=== PATIENT | male | born 1955 | race Two or more races ===

== ENCOUNTER 2020-09-20 09:06 | Day surgery (SDC) | payer OTHER ==
[2020-09-15 15:04] VITALS: BMI 28.8
[2020-09-20] MEDS: PHENYLEPHRINE 2.5% OPHTH SOLN 15 ML BOTTLE ONE ×3 (09:45→09:55)
[2020-09-20] MEDS: CIPROFLOXACIN 0.3% EYE DROPS 5 ML BOTTLE ONE ×3 (09:45→09:55)
[2020-09-20] MEDS: TROPICAMIDE 1% OPHTH SOLN 15 ML BOTTLE ONE ×3 (09:45→09:55)
[2020-09-20] MEDS: CYCLOPENTOLATE 2% OPHTH SOLN 2 ML BOTTLE ONE ×3 (09:45→09:55)
[2020-09-20] MEDS ORDERED: MIDAZOLAM HCL 2 MG/2 ML SINGLE DOSE VIAL ONE (12:02)
[2020-09-20 12:52] VITALS: TEMP 98
[2020-09-20 14:09] VITALS: BP 133/63; PULSE 55
== END 2020-09-20 13:00 | disposition home or self-care (01) ==
LOC: FASU 09:06
PROVIDERS: ATTEND Ophthalmology
PROC: 08RK3JZ Replacement of Left Lens with Synthetic Substitute, Percutaneous Approach (ICD-10-PCS; principal; 2020-09-20 12:08)
DX: H26.9 Unspecified cataract (principal)
CPT/HCPCS: 82962

== ENCOUNTER 2024-07-02 19:47 | Emergency (ER) | payer OTHER ==
[2024-07-02 20:19] VITALS: BP 148/80; PULSE 72; TEMP 98.4; BMI 29.6
[2024-07-02] MEDS ORDERED: ACETAMINOPHEN 500 MG TABLET (FP) ONE (20:42)
[2024-07-02] MEDS: ACETAMINOPHEN 500 MG TABLET (FP) PO ONE (20:47)
== END 2024-07-02 23:15 | disposition home or self-care (01) ==
LOC: JER 19:47
DX: M25.511 Pain in right shoulder (principal); M25.531 Pain in right wrist; R07.89 Other chest pain; V43.52XA Car driver injured in collision with other type car in traffic accident, initial encounter; Y92.410 Unspecified street and highway as the place of occurrence of the external cause
CPT/HCPCS: 70450-TC; 71046-TC-FY; 71250-TC; 73030-TC-RT-FY; 73110-TC-RT-FY; 93005; 93010; 99284-25